=== PATIENT | male | born 1945 | race Two or more races ===

== ENCOUNTER 2016-04-12 21:55 | Inpatient (IN) | payer BC, OTHER ==
[~2016-04-12] VITALS: Ht 172.7 cm; Wt 116.4 kg
[2016-04-12] MEDS ORDERED: METOPROLOL TARTRATE 1MG/1ML-5ML VIAL IV ONE ×3 (22:10→22:45)
[2016-04-12] MEDS ORDERED: MECLIZINE HCL 25 MG TAB ONE (22:12)
[2016-04-12] MEDS ORDERED: MECLIZINE HCL 25 MG TAB PO ONE (22:15)
[2016-04-12] MEDS ORDERED: cloNIDine HCL 0.1 MG TAB ONE (22:26)
[2016-04-12] MEDS ORDERED: cloNIDine HCL 0.1 MG TAB PO ONE (22:45)
[2016-04-12] MEDS ORDERED: SODIUM CHLORIDE 0.9% 1,000 ML IV ONE (23:00)
[2016-04-12 23:07] LABS: Basophils # (auto) 0 uL; Basophils % (auto) 0.3 % (0.0-2.0); DEFINITIVE VIEW TRANSMISSION; Eosinophils # (auto) 0 uL; Eosinophils % (auto) 0.5 % (0.0-7.0); Hematocrit 40.3 % (41.0-53.0); Hemoglobin 12.8 g/dL (13.5-17.5); Lymphocytes # (auto) 1.5 uL; Lymphocytes % (auto) 18.8 % (10.0-50.0); Mean Corpuscular Hemoglobin 25.3 pg (28.0-32.0); Mean Corpuscular Hgb Conc. 31.7 g/dL (32.0-36.0); Mean Corpuscular Volume 79.8 fL (80.0-100.0); Mean Platelet Volume 8.7 fL (7.4-10.4); Monocytes # (auto) 0.5 uL; Monocytes % (auto) 5.8 % (0.0-12.0); Neutrophils # (auto) 6.1 uL; Neutrophils % (auto) 74.6 % (37.0-80.0); Platelet Count (auto) 194 10^3/uL (140-450); Red Cell Distribution Width 18.3 % (11.6-16.0); White Blood Cell 8.2 10^3/uL (4.4-10.8)
[2016-04-12 23:24] LABS: Partial Thromboplastin Time 24.8 sec (22.64-33.71)
[2016-04-12 23:25] LABS: INR 1.17 (0.9-1.15)
[2016-04-12 23:26] LABS: Albumin 3.4 g/dL (3.4-5.0); BUN/Creatinine Ratio 20.9; Calcium 7.8 mg/dL (8.5-10.1); Magnesium 2.1 mg/dL (1.6-2.6); Potassium 3.5 mmol/L (3.5-5.1)
[2016-04-12 23:29] LABS: Bilirubin, Total 0.5 mg/dL (0.2-1.0); Total Protein 7.1 g/dL (6.4-8.2)
[2016-04-12] MEDS ORDERED: FUROSEMIDE 20 MG/2 ML VIAL IV ONE (23:30)
[2016-04-12] MEDS ORDERED: ALBUTEROL SULF 2.5 MG/0.5ML(0.5%) NEB SOLN NEB ONE (23:30)
[2016-04-12] MEDS ORDERED: IPRATROPIUM BROM 0.5 MG/2.5ML INH SOL NEB ONE (23:30)
[2016-04-12] MEDS ORDERED: IOHEXOL 350 MG/ML 100ML IJ ONE (23:31)
[2016-04-12 23:39] LABS: B-Type Natriuretic Peptide 536.83 pg/mL (0-100); Temperature: 23.1 C (20.0-25.0)
[2016-04-13] VITALS (58 sets, daily range): BP systolic 97–150; BP diastolic 46–90
[2016-04-13] MEDS ORDERED: NITROGLYCERIN 50MG/250ML 250 ML IV ONE (00:20)
[2016-04-13] MEDS ORDERED: LORazepam 2MG/ML-1ML VIAL IV PRN (00:30)
[2016-04-13] MEDS ORDERED: NITROGLYCERIN 50MG/250ML 250 ML IV PRN ×2 (00:30→01:30)
[2016-04-13] MEDS ORDERED: MORPHINE SULF INJ 2 MG/ML SYRINGE 1ML IV PRN (00:30)
[2016-04-13] MEDS ORDERED: ACETAMINOPHEN 325 MG TAB PO PRN (00:30)
[2016-04-13] MEDS ORDERED: DEXTROSE (50%) 50ML SYRG IV PRN (00:30)
[2016-04-13] MEDS ORDERED: ONDANSETRON HCL 4 MG/2 ML VIAL IV PRN (00:30)
[2016-04-13 01:18] LABS: Urine Bilirubin Negative (Negative); Urine Blood Negative /uL (Negative); Urine Color Straw (Yellow); Urine Glucose Normal (Normal); Urine Ketone Negative (Negative); Urine Nitrite Negative (Negative); Urine RBC <1 /hpf (0 - 3); Urine Urobilinogen Normal (Negative); Urine pH 6.5 (5.0-8.0)
[2016-04-13] MEDS ORDERED: MORPHINE SULF INJ 2 MG/ML SYRINGE 1ML IV ONE (02:00)
[2016-04-13] MEDS: InsuLIN REG 1unit/0.01ml Soln (100units/ml) SC SCH ×3 (06:00→18:00)
[2016-04-13] MEDS: ACCU-CHEK COMFORT CURVE STRIP VI SCH ×3 (06:00→18:00)
[2016-04-13 07:55] LABS: Basophils # (auto) 0 uL; Basophils % (auto) 0.2 % (0.0-2.0); DEFINITIVE VIEW TRANSMISSION; Eosinophils # (auto) 0 uL; Eosinophils % (auto) 0.1 % (0.0-7.0); Hematocrit 39.8 % (41.0-53.0); Hemoglobin 12.5 g/dL (13.5-17.5); Lymphocytes # (auto) 0.9 uL; Lymphocytes % (auto) 9.6 % (10.0-50.0); Mean Corpuscular Hemoglobin 25.2 pg (28.0-32.0); Mean Corpuscular Hgb Conc. 31.5 g/dL (32.0-36.0); Mean Corpuscular Volume 79.8 fL (80.0-100.0); Mean Platelet Volume 8.6 fL (7.4-10.4); Monocytes # (auto) 0.5 uL; Monocytes % (auto) 5.3 % (0.0-12.0); Neutrophils # (auto) 7.5 uL; Neutrophils % (auto) 84.8 % (37.0-80.0); Platelet Count (auto) 196 10^3/uL (140-450); Red Cell Distribution Width 18.4 % (11.6-16.0); White Blood Cell 8.9 10^3/uL (4.4-10.8)
[2016-04-13 08:09] LABS: Albumin 3.6 g/dL (3.4-5.0); BUN/Creatinine Ratio 23.1; Bilirubin, Total 0.6 mg/dL (0.2-1.0); Calcium 8.9 mg/dL (8.5-10.1); Total Protein 7.1 g/dL (6.4-8.2)
[2016-04-13] MEDS ORDERED: PANTOPRAZOLE SODIUM 40 MG/10 ML VIAL IV ONE (09:00)
[2016-04-13 09:15] LABS: Cholesterol 143 mg/dL (<200); HDL Cholesterol 51 mg/dL (40-59); LDL Cholesterol 83 mg/dL (<100); Triglycerides 99 mg/dL (<150)
[2016-04-13] MEDS: METOPROLOL TARTRATE 25 MG TAB PO SCH ×2 (10:00→20:14)
[2016-04-13] MEDS: ASPirin 81 mg TAB PO SCH (10:00)
[2016-04-13] MEDS ORDERED: ASPirin 81 mg TAB PO ONE (10:00)
[2016-04-13] MEDS: POTASSIUM CHL 20 Meq TABLET PO SCH (10:00)
[2016-04-13] MEDS: FUROSEMIDE 20 MG/2 ML VIAL IV SCH (10:00)
[2016-04-13] MEDS ORDERED: LISINOPRIL 20 MG TAB ONE (12:49)
[2016-04-13] MEDS ORDERED: LABETALOL HCL 5 MG/ML 4ML SYRINGE IV PRN (13:15)
[2016-04-13] MEDS ORDERED: CLOPIDOGREL BISULFATE 75 MG TAB PO SCH (15:00)
[2016-04-13] MEDS: LISINOPRIL 20 MG TAB PO SCH (20:15)
[2016-04-13] MEDS: ATORVASTATIN 20 MG TAB PO SCH (20:16)
[2016-04-13] MEDS ORDERED: SODIUM CHLORIDE 0.9% 1,000 ML IV SCH (21:45)
[2016-04-13] MEDS ORDERED: CLOPIDOGREL BISULFATE 75 MG TAB ONE (21:49)
[2016-04-13] MEDS: CLOPIDOGREL BISULFATE 75 MG TAB PO SCH (21:55)
[2016-04-13] MEDS ORDERED: ATORVASTATIN 20 MG TAB PO SCH (22:00)
[2016-04-13] MEDS: SODIUM CHLORIDE 0.9% 1,000 ML IV SCH (22:05)
[2016-04-14] VITALS (27 sets, daily range): BP systolic 110–164; BP diastolic 55–87
[2016-04-14] MEDS: ACCU-CHEK COMFORT CURVE STRIP VI SCH ×5 (00:22→23:42)
[2016-04-14 07:27] LABS: Basophils # (auto) 0 uL; Basophils % (auto) 0.2 % (0.0-2.0); DEFINITIVE VIEW TRANSMISSION; Eosinophils # (auto) 0 uL; Eosinophils % (auto) 0.6 % (0.0-7.0); Hematocrit 38.5 % (41.0-53.0); Hemoglobin 12.1 g/dL (13.5-17.5); Lymphocytes # (auto) 1.4 uL; Lymphocytes % (auto) 17.1 % (10.0-50.0); Mean Corpuscular Hemoglobin 25.1 pg (28.0-32.0); Mean Corpuscular Hgb Conc. 31.5 g/dL (32.0-36.0); Mean Corpuscular Volume 79.6 fL (80.0-100.0); Mean Platelet Volume 8.4 fL (7.4-10.4); Neutrophils # (auto) 5.9 uL; Neutrophils % (auto) 70.1 % (37.0-80.0); Platelet Count (auto) 185 10^3/uL (140-450); Red Cell Distribution Width 18.4 % (11.6-16.0); White Blood Cell 8.4 10^3/uL (4.4-10.8)
[2016-04-14 07:44] LABS: Albumin 3.2 g/dL (3.4-5.0); Calcium 8.3 mg/dL (8.5-10.1); Potassium 4.3 mmol/L (3.5-5.1)
[2016-04-14 07:46] LABS: BUN/Creatinine Ratio 20.8
[2016-04-14] MEDS: SODIUM CHLORIDE 0.9% 1,000 ML IV SCH ×2 (08:00→20:43)
[2016-04-14 08:23] LABS: Bilirubin, Total 0.8 mg/dL (0.2-1.0); Total Protein 6.7 g/dL (6.4-8.2)
[2016-04-14] MEDS ORDERED: fentaNYL CITRATE 100 MCG/2 ML VL ONE (09:18)
[2016-04-14] MEDS ORDERED: MIDAZOLAM HCL 1MG/1ML-2 ML VIAL ONE (09:18)
[2016-04-14] MEDS ORDERED: SODIUM CHL 0.9% 50 ML ONE (09:18)
[2016-04-14] MEDS ORDERED: ANGIOMAX 250 MG VIAL IV ONE (09:18)
[2016-04-14] MEDS ORDERED: EPTIFIBATIDE INJ (2MG/ML) 10ML VIAL IV ONE (09:19)
[2016-04-14] MEDS ORDERED: HEPARIN DRIP/D5W 100UNITS/ML 250 ML IV ONE (10:25)
[2016-04-14] MEDS: FUROSEMIDE 20 MG/2 ML VIAL IV SCH (11:28)
[2016-04-14] MEDS: PANTOPRAZOLE SODIUM 40 MG/10 ML VIAL IV SCH (11:28)
[2016-04-14] MEDS: POTASSIUM CHL 20 Meq TABLET PO SCH (11:29)
[2016-04-14] MEDS: METOPROLOL TARTRATE 25 MG TAB PO SCH ×2 (11:29→21:29)
[2016-04-14] MEDS: LISINOPRIL 20 MG TAB PO SCH ×2 (11:29→21:30)
[2016-04-14] MEDS: ASPirin 81 mg TAB PO SCH (11:29)
[2016-04-14] MEDS ORDERED: HEPARIN DRIP/D5W 100UNITS/ML 250 ML IV SCH (11:41)
[2016-04-14] MEDS: InsuLIN REG 1unit/0.01ml Soln (100units/ml) SC SCH ×5 (12:00→23:42)
[2016-04-14] MEDS: HEPARIN DRIP/D5W 100UNITS/ML 250 ML IV SCH (12:00)
[2016-04-14 12:40] LABS: Partial Thromboplastin Time 28.6 sec (22.64-33.71)
[2016-04-14 12:43] LABS: INR 1.21 (0.9-1.15); Prothrombin Time 12.5 sec (9.37-12.3)
[2016-04-14] MEDS: amLODIPine BESYLATE 5 MG TAB PO PRN (17:25)
[2016-04-14] MEDS: ATORVASTATIN 20 MG TAB PO SCH (21:29)
[2016-04-15] VITALS (21 sets, daily range): BP systolic 117–166; BP diastolic 53–87
[2016-04-15] MEDS: SODIUM CHLORIDE 0.9% 1,000 ML IV SCH (04:00)
[2016-04-15] MEDS: InsuLIN REG 1unit/0.01ml Soln (100units/ml) SC SCH ×3 (06:00→18:00)
[2016-04-15] MEDS: ACCU-CHEK COMFORT CURVE STRIP VI SCH ×3 (06:00→17:48)
[2016-04-15 06:39] LABS: Partial Thromboplastin Time 31.3 sec (22.64-33.71); Prothrombin Time 12.1 sec (9.37-12.3)
[2016-04-15 06:43] LABS: INR 1.17 (0.9-1.15)
[2016-04-15 06:57] LABS: Calcium 8.4 mg/dL (8.5-10.1); Potassium 3.8 mmol/L (3.5-5.1)
[2016-04-15 06:58] LABS: BUN/Creatinine Ratio 18.1
[2016-04-15] MEDS: CLOPIDOGREL BISULFATE 75 MG TAB PO SCH (10:00)
[2016-04-15] MEDS: FUROSEMIDE 20 MG/2 ML VIAL IV SCH (10:40)
[2016-04-15] MEDS: LISINOPRIL 20 MG TAB PO SCH (10:41)
[2016-04-15] MEDS: ASPirin 81 mg TAB PO SCH (10:41)
[2016-04-15] MEDS: PANTOPRAZOLE SODIUM 40 MG/10 ML VIAL IV SCH (10:41)
[2016-04-15] MEDS: POTASSIUM CHL 20 Meq TABLET PO SCH (10:41)
[2016-04-15] MEDS: METOPROLOL TARTRATE 25 MG TAB PO SCH (10:42)
[2016-04-15] MEDS: HEPARIN DRIP/D5W 100UNITS/ML 250 ML IV SCH (11:55)
[2016-04-15] MEDS ORDERED: ROSU10TA16 PO (17:44)
[2016-04-15] MEDS ORDERED: FURO20TA PO (17:44)
[2016-04-15] MEDS ORDERED: BENZ1CAP24 PO (17:44)
[2016-04-15] MEDS ORDERED: METF-312 PO (17:44)
[2016-04-15] MEDS ORDERED: METO-158 PO (17:44)
[2016-04-15] MEDS ORDERED: POTA10TA34 PO (17:44)
[2016-04-15] MEDS ORDERED: IPRAAER6 IN (17:44)
[2016-04-15] MEDS ORDERED: METO50TA7 PO (17:44)
[2016-04-15] MEDS ORDERED: HEPARIN DRIP/D5W 100UNITS/ML 250 ML IV ONE (17:46)
[2016-04-15] MEDS ORDERED: HEPARIN DRIP/D5W 100UNITS/ML 250 ML IV SCH (17:55)
[2016-04-15] MEDS: amLODIPine BESYLATE 5 MG TAB PO PRN (18:02)
[2016-04-15] MEDS ORDERED: SODIUM CHLORIDE 0.9% 1,000 ML IV SCH (22:00)
[2016-04-16] MEDS ORDERED: HEPARIN DRIP/D5W 100UNITS/ML 250 ML IV SCH (11:55)
== END 2016-04-15 19:15 | disposition short-term general hospital (02) | DRG 286 ==
LOC: EDBD 21:55 → ER 22:05 → TELE 22:06 → EEVIPCON 22:06 → ICU WEST 04-13 02:37
PROVIDERS: ADMIT Internal Medicine; ATTEND Internal Medicine
PROC: 5A09457 Assistance with Respiratory Ventilation, 24-96 Consecutive Hours, Continuous Positive Airway Pressure (ICD-10-PCS; principal; 2016-04-13)
PROC: 4A023N7 Measurement of Cardiac Sampling and Pressure, Left Heart, Percutaneous Approach (ICD-10-PCS; 2016-04-14)
PROC: B2111ZZ Fluoroscopy of Multiple Coronary Arteries using Low Osmolar Contrast (ICD-10-PCS; 2016-04-14)
PROC: B2151ZZ Fluoroscopy of Left Heart using Low Osmolar Contrast (ICD-10-PCS; 2016-04-14)
PROC: B3151ZZ Fluoroscopy of Bilateral Common Carotid Arteries using Low Osmolar Contrast (ICD-10-PCS; 2016-04-14)
PROC: B31G1ZZ Fluoroscopy of Bilateral Vertebral Arteries using Low Osmolar Contrast (ICD-10-PCS; 2016-04-14)
DX: I16.1 Hypertensive emergency (principal); I50.21 Acute systolic (congestive) heart failure; I42.9 Cardiomyopathy, unspecified; G45.9 Transient cerebral ischemic attack, unspecified; I16.0 Hypertensive urgency; E66.01 Morbid (severe) obesity due to excess calories; E11.9 Type 2 diabetes mellitus without complications; Z96.643 Presence of artificial hip joint, bilateral; G47.33 Obstructive sleep apnea (adult) (pediatric); E78.5 Hyperlipidemia, unspecified; I25.10 Atherosclerotic heart disease of native coronary artery without angina pectoris; M48.02 Spinal stenosis, cervical region; I11.0 Hypertensive heart disease with heart failure; H81.09 Meniere's disease, unspecified ear; Z79.02 Long term (current) use of antithrombotics/antiplatelets; Z79.82 Long term (current) use of aspirin; Z88.1 Allergy status to other antibiotic agents; Z88.0 Allergy status to penicillin; Z68.39 Body mass index [BMI] 39.0-39.9, adult; I25.2 Old myocardial infarction; Z86.73 Personal history of transient ischemic attack (TIA), and cerebral infarction without residual deficits
CPT/HCPCS: 36222; 36226; 36415; 70450; 71010; 71260; 72125; 74177; 80048; 80053; 80061; 80156; 81001; 82565; 82947; 82962; 83036; 83735; 83880; 84484; 85025; 85049; 85379; 85610; 85730; 87081; 93005; 93306; 93458; 94660; 96374; 96375; 99152; C9113; J1815; J2250; J2405; J3490

== ENCOUNTER → 2016-09-09 | Outpatient (CLI) | payer BC ==
[~2016-09-09] MED LIST: BENZ1CAP24 PO; FURO20TA PO; IPRAAER6 IN; METF-370 PO; METO-158 PO; METO50TA7 PO; POTA10TA34 PO; ROSU10TA16 PO
[2016-09-09 10:11] LABS: Basophils # (auto) 0 uL; Basophils % (auto) 0.4 % (0.0-2.0); CONDITION Y; DEFINITIVE SEE PRINTOUT; Eosinophils # (auto) 0 uL; Eosinophils % (auto) 0.5 % (0.0-7.0); Hematocrit 38.8 % (41.0-53.0); Hemoglobin 12.6 g/dL (13.5-17.5); Lymphocytes # (auto) 1.8 uL; Lymphocytes % (auto) 22.5 % (10.0-50.0); Mean Corpuscular Hemoglobin 25.6 pg (28.0-32.0); Mean Corpuscular Hgb Conc. 32.3 g/dL (32.0-36.0); Mean Corpuscular Volume 79.1 fL (80.0-100.0); Mean Platelet Volume 9.5 fL (7.4-10.4); Monocytes # (auto) 0.7 uL; Monocytes % (auto) 9.2 % (0.0-12.0); Neutrophils # (auto) 5.5 uL; Neutrophils % (auto) 67.4 % (37.0-80.0); Platelet Count (auto) 225 10^3/uL (140-450); Red Cell Distribution Width 18.3 % (11.6-16.0); White Blood Cell 8.1 10^3/uL (4.4-10.8)
[2016-09-09 10:12] LABS: INR 2.14 (0.9-1.15); Prothrombin Time 23.5 sec (9.37-12.3)
[2016-09-09 10:36] LABS: Albumin 4.1 g/dL (3.4-5.0); Bilirubin, Total 0.5 mg/dL (0.2-1.0); Calcium 9.6 mg/dL (8.5-10.1); Potassium 4.8 mmol/L (3.5-5.1)
== END | disposition home or self-care (01) ==
LOC: LAB 09:45
PROVIDERS: ATTEND Internal Medicine Cardiovascular Disease
DX: I25.10 Atherosclerotic heart disease of native coronary artery without angina pectoris (principal); R79.89 Other specified abnormal findings of blood chemistry
CPT/HCPCS: 36415; 80053; 80061; 83036; 84439; 84480; 85025; 85610

== ENCOUNTER → 2017-02-04 | Outpatient (CLI) | payer BC ==
[2017-02-04 12:20] LABS: Basophils # (auto) 0 uL; Basophils % (auto) 0.5 % (0.0-2.0); Eosinophils # (auto) 0 uL; Eosinophils % (auto) 0.5 % (0.0-7.0); Hematocrit 37.8 % (41.0-53.0); Hemoglobin 12.4 g/dL (13.5-17.5); Lymphocytes # (auto) 1.6 uL; Lymphocytes % (auto) 24.3 % (10.0-50.0); Mean Corpuscular Hgb Conc. 32.8 g/dL (32.0-36.0); Mean Corpuscular Volume 82.5 fL (80.0-100.0); Mean Platelet Volume 8.4 fL (6.9-10.8); Monocytes # (auto) 0.6 uL; Monocytes % (auto) 8.9 % (0.0-12.0); Neutrophils # (auto) 4.4 uL; Neutrophils % (auto) 65.8 % (37.0-80.0); Platelet Count (auto) 161 10^3/uL (140-450); Red Cell Distribution Width 15.3 % (11.8-14.3); White Blood Cell 6.7 10^3/uL (4.4-10.8)
[2017-02-04 12:44] LABS: INR 1.7 (0.9-1.15); Partial Thromboplastin Time 29.6 sec (22.64-33.71); Prothrombin Time 18.6 sec (9.37-12.3)
[2017-02-04 13:21] LABS: BUN/Creatinine Ratio 26.4; Bilirubin, Total 0.5 mg/dL (0.2-1.0); Calcium 8.8 mg/dL (8.5-10.1); Potassium 3.9 mmol/L (3.5-5.1); Total Protein 7.9 g/dL (6.4-8.2)
== END | disposition home or self-care (01) ==
LOC: LAB 12:11
PROVIDERS: ATTEND Internal Medicine Cardiovascular Disease
DX: I10 Essential (primary) hypertension (principal); D64.9 Anemia, unspecified; E78.5 Hyperlipidemia, unspecified; E11.9 Type 2 diabetes mellitus without complications; Z86.73 Personal history of transient ischemic attack (TIA), and cerebral infarction without residual deficits; Z79.01 Long term (current) use of anticoagulants; Z95.1 Presence of aortocoronary bypass graft
CPT/HCPCS: 36415; 80053; 80061; 83036; 85025; 85610; 85730

== ENCOUNTER → 2017-05-16 | Outpatient (CLI) | payer BC ==
[2017-05-16 09:48] LABS: Basophils # (auto) 0 uL; Eosinophils # (auto) 0 uL; Eosinophils % (auto) 0.4 % (0.0-7.0); Hemoglobin 11.4 g/dL (13.5-17.5); Mean Corpuscular Hemoglobin 25.4 pg (28.0-32.0); Monocytes # (auto) 0.4 uL; Neutrophils # (auto) 3.4 uL; Red Cell Distribution Width 17.2 % (11.8-14.3)
[2017-05-16 09:50] LABS: Basophils % (auto) 0.4 % (0.0-2.0); Hematocrit 35.5 % (41.0-53.0); Lymphocytes # (auto) 1.2 uL; Lymphocytes % (auto) 23.8 % (10.0-50.0); Mean Corpuscular Hgb Conc. 32.2 g/dL (32.0-36.0); Mean Corpuscular Volume 78.8 fL (80.0-100.0); Monocytes % (auto) 7.4 % (0.0-12.0); Platelet Count (auto) 176 10^3/uL (140-450)
[2017-05-16 10:06] LABS: Albumin 3.7 g/dL (3.4-5.0); BUN/Creatinine Ratio 21.9; Bilirubin, Total 0.6 mg/dL (0.2-1.0); Calcium 9.1 mg/dL (8.5-10.1); Potassium 4.4 mmol/L (3.5-5.1); Total Protein 7.6 g/dL (6.4-8.2)
[2017-05-16 10:10] LABS: INR 1.73 (0.9-1.15); Partial Thromboplastin Time 29.8 sec (22.64-33.71)
== END | disposition home or self-care (01) ==
LOC: LAB 08:50
PROVIDERS: ATTEND Internal Medicine Cardiovascular Disease
DX: I10 Essential (primary) hypertension (principal); E11.9 Type 2 diabetes mellitus without complications; R79.89 Other specified abnormal findings of blood chemistry
CPT/HCPCS: 36415; 80053; 80061; 82947; 83036; 83880; 85025; 85610; 85730

== ENCOUNTER → 2017-08-06 | Outpatient (CLI) | payer BC ==
[2017-08-06 11:04] LABS: Basophils # (auto) 0 uL; Basophils % (auto) 0.4 % (0.0-2.0); Eosinophils # (auto) 0.1 uL; Hemoglobin 12.7 g/dL (13.5-17.5); Lymphocytes # (auto) 1.7 uL; Neutrophils # (auto) 4.3 uL
[2017-08-06 11:06] LABS: Hematocrit 38.8 % (41.0-53.0); Lymphocytes % (auto) 25.5 % (10.0-50.0); Mean Corpuscular Hemoglobin 26.1 pg (28.0-32.0); Mean Corpuscular Hgb Conc. 32.6 g/dL (32.0-36.0); Mean Corpuscular Volume 80.2 fL (80.0-100.0); Monocytes # (auto) 0.7 uL; Monocytes % (auto) 9.7 % (0.0-12.0); Neutrophils % (auto) 63.4 % (37.0-80.0); Platelet Count (auto) 162 10^3/uL (140-450); Red Blood Cells 4.84 10^6/uL (4.5-5.90); Red Cell Distribution Width 17.4 % (11.8-14.3); White Blood Cell 6.9 10^3/uL (4.4-10.8)
[2017-08-06 11:20] LABS: INR 1.06 (0.9-1.15); Partial Thromboplastin Time 26.1 sec (22.64-33.71); Prothrombin Time 11.6 sec (9.37-12.3)
[2017-08-06 11:26] LABS: Albumin 4.2 g/dL (3.4-5.0); BUN/Creatinine Ratio 29.8; Bilirubin, Total 0.5 mg/dL (0.2-1.0); Calcium 9.4 mg/dL (8.5-10.1); Potassium 4.7 mmol/L (3.5-5.1); Total Protein 8.2 g/dL (6.4-8.2)
== END | disposition home or self-care (01) ==
LOC: LAB 10:47
PROVIDERS: ATTEND Internal Medicine Cardiovascular Disease
DX: E11.65 Type 2 diabetes mellitus with hyperglycemia (principal); I25.729 Atherosclerosis of autologous artery coronary artery bypass graft(s) with unspecified angina pectoris; I11.0 Hypertensive heart disease with heart failure; I50.9 Heart failure, unspecified; E78.5 Hyperlipidemia, unspecified; I25.10 Atherosclerotic heart disease of native coronary artery without angina pectoris; Z79.01 Long term (current) use of anticoagulants; Z86.73 Personal history of transient ischemic attack (TIA), and cerebral infarction without residual deficits; Z95.1 Presence of aortocoronary bypass graft; Z79.82 Long term (current) use of aspirin; Z88.0 Allergy status to penicillin
CPT/HCPCS: 36415; 80053; 80061; 83036; 83880; 84153; 84403; 84443; 85025; 85610; 85730

== ENCOUNTER → 2017-10-23 | Outpatient (CLI) | payer BC ==
[~2017-10-23] MED LIST changes: +MET5XLT PO; -METO50TA7 PO; -POTA10TA34 PO; +POTA1TAB61 PO
[2017-10-23 11:57] LABS: Basophils # (auto) 0 uL; Basophils % (auto) 0.5 % (0.0-2.0); Eosinophils # (auto) 0.1 uL; Eosinophils % (auto) 0.7 % (0.0-7.0); Hematocrit 43.3 % (41.0-53.0); Hemoglobin 13.9 g/dL (13.5-17.5); Lymphocytes # (auto) 1.7 uL; Lymphocytes % (auto) 22.9 % (10.0-50.0); Mean Corpuscular Hemoglobin 26.2 pg (28.0-32.0); Mean Corpuscular Volume 81.7 fL (80.0-100.0); Monocytes # (auto) 0.6 uL; Monocytes % (auto) 7.8 % (0.0-12.0); Neutrophils % (auto) 68.1 % (37.0-80.0); Nucleated Red Blood Cells % 0.1 %; Red Cell Distribution Width 16.8 % (11.8-14.3); White Blood Cell 7.3 10^3/uL (4.4-10.8)
[2017-10-23 11:58] LABS: Platelet Count (auto) 134 10^3/uL (140-450)
[2017-10-23 12:33] LABS: INR 1.04 (0.9-1.15); Partial Thromboplastin Time 26.6 sec (23.78-33.04); Prothrombin Time 11.1 sec (9.27-12.13)
[2017-10-23 13:34] LABS: BUN/Creatinine Ratio 25.8; Calcium 8.8 mg/dL (8.5-10.1); Potassium 4.6 mmol/L (3.5-5.1)
== END | disposition home or self-care (01) ==
LOC: LAB 11:05
PROVIDERS: ATTEND Surgery
DX: I25.5 Ischemic cardiomyopathy (principal)
CPT/HCPCS: 36415; 80048; 80061; 85025; 85610; 85730

== ENCOUNTER → 2018-04-28 | Outpatient (CLI) | payer BC ==
[2018-04-28 09:27] LABS: Basophils # (auto) 0 uL; Basophils % (auto) 0.5 % (0.0-2.0); Eosinophils # (auto) 0.1 uL; Hematocrit 41.9 % (41.0-53.0); Hemoglobin 13.7 g/dL (13.5-17.5); Lymphocytes # (auto) 1.4 uL; Lymphocytes % (auto) 23.6 % (10.0-50.0); Mean Corpuscular Hemoglobin 27.2 pg (28.0-32.0); Mean Corpuscular Hgb Conc. 32.7 g/dL (32.0-36.0); Mean Corpuscular Volume 83.2 fL (80.0-100.0); Monocytes # (auto) 0.5 uL; Monocytes % (auto) 8.5 % (0.0-12.0); Neutrophils % (auto) 66.4 % (37.0-80.0); Platelet Count (auto) 150 10^3/uL (140-450); Red Blood Cells 5.03 10^6/uL (4.5-5.90); Red Cell Distribution Width 15.7 % (11.8-14.3)
[2018-04-28 09:39] LABS: INR 1.12 (0.9-1.15); Partial Thromboplastin Time 26.7 sec (23.78-33.04); Prothrombin Time 11.9 sec (9.27-12.13)
[2018-04-28 09:59] LABS: Alkaline Phosphatase 66 U/L (45-117); Bilirubin, Total 0.7 mg/dL (0.2-1.0); Cholesterol 125 mg/dL (< 200); GFR African American 101 mL/min; GFR Non-African American 83 mL/min; HDL Cholesterol 46 mg/dL (40-59); LDL Cholesterol 64 mg/dL (< 100); Total Protein 8.1 g/dL (6.4-8.2); Triglycerides 131 mg/dL (< 150)
[2018-04-28 10:01] LABS: Alanine Aminotransferase 21 U/L (16-61); Albumin 4.1 g/dL (3.4-5.0); Anion Gap 4 (5-15); Aspartate Aminotransferase 17 U/L (15-37); BUN/Creatinine Ratio 23.2; Blood Urea Nitrogen 22 mg/dL (7-18); Calcium 9.2 mg/dL (8.5-10.1); Carbon Dioxide 28 mmol/L (21-32); Chloride 109 mmol/L (98-107); Glucose 113 mg/dL (74-106); Potassium 4.6 mmol/L (3.5-5.1); Sodium 141 mmol/L (136-145)
== END | disposition home or self-care (01) ==
LOC: LAB 09:06
PROVIDERS: ATTEND Internal Medicine Cardiovascular Disease
DX: N40.0 Benign prostatic hyperplasia without lower urinary tract symptoms (principal); I25.10 Atherosclerotic heart disease of native coronary artery without angina pectoris; E11.65 Type 2 diabetes mellitus with hyperglycemia; I10 Essential (primary) hypertension
CPT/HCPCS: 36415; 80053; 82465; 83036; 83718; 83721; 83880; 84153; 84443; 84478; 85025; 85610; 85730

== ENCOUNTER → 2018-05-20 | Outpatient (CLI) | payer BC | END | disposition home or self-care (01) | LOC: LAB 08:04 | PROVIDERS: ATTEND Internal Medicine Cardiovascular Disease | DX: R79.89 Other specified abnormal findings of blood chemistry (principal) | CPT/HCPCS: 36415; 84403 ==

== ENCOUNTER → 2019-06-05 | Emergency (ER) | payer BC, SELFPAY ==
[~2019-06-05] VITALS: Ht 175.3 cm; Wt 90.7 kg
[~2019-06-05] MED LIST changes: +ACETAMINOPHEN 500 MG TAB PO ONE; +FURO1TAB33 PO; -FURO20TA PO; -MET5XLT PO; +METO-6 PO
[2019-06-05 20:20] VITALS: BP 105/79
== END | disposition home or self-care (01) ==
LOC: EEVIPCON 20:08 → ER 20:08
DX: B97.4 Respiratory syncytial virus as the cause of diseases classified elsewhere (principal); I11.0 Hypertensive heart disease with heart failure; I50.9 Heart failure, unspecified; E11.9 Type 2 diabetes mellitus without complications; Z86.73 Personal history of transient ischemic attack (TIA), and cerebral infarction without residual deficits; Z98.61 Coronary angioplasty status
CPT/HCPCS: 71046; 87804; 87807

== ENCOUNTER 2019-06-21 13:51 | Emergency (ER) | payer BC, SELFPAY ==
[~2019-06-21] VITALS: Ht 175.3 cm; Wt 90.7 kg
[~2019-06-21 13:51] MED LIST changes: -ACETAMINOPHEN 500 MG TAB PO ONE; -BENZ1CAP24 PO; +BENZ200C64 PO
[2019-06-21 14:03] VITALS: BP 118/65
== END 2019-06-21 14:07 | disposition home or self-care (01) ==
LOC: EEVIPCON 13:51 → ER 13:51
DX: F41.9 Anxiety disorder, unspecified (principal); R50.9 Fever, unspecified; R05 Cough; I11.0 Hypertensive heart disease with heart failure; I50.9 Heart failure, unspecified; E11.9 Type 2 diabetes mellitus without complications; Z86.73 Personal history of transient ischemic attack (TIA), and cerebral infarction without residual deficits; Z98.61 Coronary angioplasty status; Z88.1 Allergy status to other antibiotic agents; Z20.828 Contact with and (suspected) exposure to other viral communicable diseases
CPT/HCPCS: 87635; 99001

== ENCOUNTER → 2019-08-19 | Outpatient (CLI) | payer BC, MEDICARE ==
[~2019-08-19] MED LIST changes: +BENZ1CAP24 PO; -BENZ200C64 PO
[2019-08-19 09:29] LABS: Basophils # (auto) 0 10 ^3/uL (0-0.2); Basophils % (auto) 0.4 % (0.0-2.0); Eosinophils # (auto) 0 10 ^3/uL (0-0.8); Monocytes # (auto) 0.5 10 ^3/uL (0-1.3); Neutrophils # (auto) 3.8 10 ^3/uL (1.6-8.6)
[2019-08-19 09:30] LABS: Eosinophils % (auto) 0.5 % (0.0-7.0); Hematocrit 38.5 % (41.0-53.0); Hemoglobin 12.6 g/dL (13.5-17.5); Lymphocytes # (auto) 1.2 10 ^3/uL (0.4-5.4); Lymphocytes % (auto) 21.8 % (10.0-50.0); Mean Corpuscular Hgb Conc. 32.9 g/dL (32.0-36.0); Monocytes % (auto) 8.7 % (0.0-12.0); Neutrophils % (auto) 68.6 % (37.0-80.0); Platelet Count (auto) 135 10^3/uL (140-450); Red Blood Cells 4.69 10^6/uL (4.5-5.90); Red Cell Distribution Width 16.2 % (11.8-14.3); White Blood Cell 5.5 10^3/uL (4.4-10.8)
[2019-08-19 09:46] LABS: INR 1.18 (0.9-1.15); Partial Thromboplastin Time 27.8 sec (23.64-32.05)
[2019-08-19 09:47] LABS: Albumin 3.8 g/dL (3.4-5.0); Calcium 8.6 mg/dL (8.5-10.1); Potassium 4.8 mmol/L (3.5-5.1)
[2019-08-19 09:52] LABS: BUN/Creatinine Ratio 20.7; Bilirubin, Total 0.5 mg/dL (0.2-1.0); Total Protein 7.5 g/dL (6.4-8.2)
== END | disposition home or self-care (01) ==
LOC: LAB 09:17
PROVIDERS: ATTEND Surgery
DX: Z00.00 Encounter for general adult medical examination without abnormal findings (principal)
CPT/HCPCS: 36415; 80053; 80061; 83036; 84153; 85025; 85610; 85730

== ENCOUNTER → 2019-11-09 | Outpatient (CLI) | payer OTHER ==
[~2019-11-09] MED LIST changes: -BENZ1CAP24 PO; +BENZ200C64 PO
== END | disposition home or self-care (01) ==
LOC: LAB 11:55
PROVIDERS: ATTEND Physician Assistant
DX: Z20.828 Contact with and (suspected) exposure to other viral communicable diseases (principal)

== ENCOUNTER → 2020-03-09 | Outpatient (CLI) | payer BC | END | disposition home or self-care (01) | LOC: LAB 10:23 | PROVIDERS: ATTEND Nurse Practitioner Family | DX: U07.1 COVID-19 (principal) | CPT/HCPCS: 36415; 87426 ==

== ENCOUNTER → 2020-10-25 | Outpatient (CLI) | payer BC, MEDICARE ==
[2020-10-25 10:38] LABS: Basophils # (auto) 0 10 ^3/uL (0-0.2); Basophils % (auto) 0.5 % (0.0-2.0); Eosinophils # (auto) 0 10 ^3/uL (0-0.8); Eosinophils % (auto) 0.8 % (0.0-7.0); Hematocrit 37.9 % (41.0-53.0); Hemoglobin 12.8 g/dL (13.5-17.5); Lymphocytes # (auto) 1.2 10 ^3/uL (0.4-5.4); Mean Corpuscular Hemoglobin 27.4 pg (28.0-32.0); Mean Corpuscular Hgb Conc. 33.9 g/dL (32.0-36.0); Monocytes # (auto) 0.5 10 ^3/uL (0-1.3); Monocytes % (auto) 8.1 % (0.0-12.0); Neutrophils # (auto) 4.1 10 ^3/uL (1.6-8.6); Neutrophils % (auto) 69.6 % (37.0-80.0); Red Blood Cells 4.68 10^6/uL (4.5-5.90); Red Cell Distribution Width 16.6 % (11.8-14.3); White Blood Cell 5.8 10^3/uL (4.4-10.8)
[2020-10-25 11:03] LABS: Albumin 3.9 g/dL (3.4-5.0); INR 1.63 (0.9-1.15); Potassium 4.6 mmol/L (3.5-5.1)
[2020-10-25 11:09] LABS: BUN/Creatinine Ratio 22.7; Bilirubin, Total 0.5 mg/dL (0.2-1.0); CRP High Sensitivity 0.08 mg/dL (< 0.3)
== END | disposition home or self-care (01) ==
LOC: LAB 10:21
PROVIDERS: ATTEND Internal Medicine
DX: I11.0 Hypertensive heart disease with heart failure (principal); I50.42 Chronic combined systolic (congestive) and diastolic (congestive) heart failure; E11.65 Type 2 diabetes mellitus with hyperglycemia; N40.0 Benign prostatic hyperplasia without lower urinary tract symptoms
CPT/HCPCS: 36415; 80053; 80061; 83036; 84153; 84403; 84443; 85025; 85610; 85652; 85730; 86141

== ENCOUNTER → 2021-06-07 | Outpatient (CLI) | payer BC ==
[2021-06-07 08:04] LABS: Basophils # (auto) 0 10 ^3/uL (0-0.2); Basophils % (auto) 0.7 % (0.0-2.0); Eosinophils # (auto) 0 10 ^3/uL (0-0.8); Eosinophils % (auto) 0.8 % (0.0-7.0); Hematocrit 37.2 % (41.0-53.0); Hemoglobin 12.4 g/dL (13.5-17.5); Lymphocytes # (auto) 1.3 10 ^3/uL (0.4-5.4); Lymphocytes % (auto) 25.3 % (10.0-50.0); Mean Corpuscular Hgb Conc. 33.4 g/dL (32.0-36.0); Mean Corpuscular Volume 80.8 fL (80.0-100.0); Monocytes # (auto) 0.4 10 ^3/uL (0-1.3); Monocytes % (auto) 8.1 % (0.0-12.0); Neutrophils # (auto) 3.3 10 ^3/uL (1.6-8.6); Neutrophils % (auto) 65.1 % (37.0-80.0); Nucleated Red Blood Cells % 0.1 %; Red Cell Distribution Width 16.4 % (11.8-14.3)
[2021-06-07 08:41] LABS: Albumin 3.8 g/dL (3.4-5.0)
[2021-06-07 08:47] LABS: INR 1.99 (0.9-1.15)
[2021-06-07 08:48] LABS: BUN/Creatinine Ratio 19.4; Bilirubin, Direct 0.2 mg/dL (0-0.2); Bilirubin, Total 0.6 mg/dL (0.2-1.0); Total Protein 7.2 g/dL (6.4-8.2)
== END | disposition home or self-care (01) ==
LOC: LAB 07:51
PROVIDERS: ATTEND Nurse Practitioner
DX: E11.65 Type 2 diabetes mellitus with hyperglycemia (principal); I25.2 Old myocardial infarction; I10 Essential (primary) hypertension; I48.0 Paroxysmal atrial fibrillation
CPT/HCPCS: 36415; 80053; 80061; 80076; 83036; 84153; 84403; 85025; 85610; 85730

== ENCOUNTER → 2021-11-01 | Outpatient (CLI) | payer BC ==
[2021-11-01 08:35] LABS: Basophils # (auto) 0 10 ^3/uL (0-0.2); Eosinophils # (auto) 0 10 ^3/uL (0-0.8); Lymphocytes # (auto) 1.3 10 ^3/uL (0.4-5.4); Monocytes # (auto) 0.5 10 ^3/uL (0-1.3); Neutrophils % (auto) 66.4 % (37.0-80.0)
[2021-11-01 08:37] LABS: Basophils % (auto) 0.6 % (0.0-2.0); Eosinophils % (auto) 0.6 % (0.0-7.0); Hematocrit 40.3 % (41.0-53.0); Hemoglobin 12.7 g/dL (13.5-17.5); Mean Corpuscular Hemoglobin 25.5 pg (28.0-32.0); Mean Corpuscular Hgb Conc. 31.5 g/dL (32.0-36.0); Mean Corpuscular Volume 80.9 fL (80.0-100.0); Monocytes % (auto) 8.4 % (0.0-12.0); Neutrophils # (auto) 3.7 10 ^3/uL (1.6-8.6); Nucleated Red Blood Cells % 0.1 %; Red Blood Cells 4.98 10^6/uL (4.5-5.90); Red Cell Distribution Width 16.9 % (11.8-14.3); White Blood Cell 5.5 10^3/uL (4.4-10.8)
[2021-11-01 08:46] LABS: Calcium 8.6 mg/dL (8.5-10.1); Potassium 4.4 mmol/L (3.5-5.1)
[2021-11-01 08:51] LABS: BUN/Creatinine Ratio 21.1; Bilirubin, Total 0.7 mg/dL (0.2-1.0); INR 1.69 (0.9-1.15); Partial Thromboplastin Time 32.5 sec (24.6-33.4); Total Protein 7.4 g/dL (6.4-8.2)
== END | disposition home or self-care (01) ==
LOC: LAB 08:20
PROVIDERS: ATTEND Internal Medicine
DX: A88.1 Epidemic vertigo (principal)
CPT/HCPCS: 36415; 80053; 80061; 82947; 83036; 84403; 84443; 85025; 85610; 85730

== ENCOUNTER → 2024-03-18 | Outpatient (CLI) | payer BC, MEDICARE ==
[~2024-03-18] MED LIST changes: +POTA-215 PO; -POTA1TAB61 PO
[2024-03-18 13:13] LABS: Basophils # (auto) 0 10 ^3/uL (0-0.2); Basophils % (auto) 0.3 % (0.0-2.0); Eosinophils # (auto) 0 10 ^3/uL (0-0.8); Eosinophils % (auto) 0.7 % (0.0-7.0); Hematocrit 42.6 % (41.0-53.0); Lymphocytes # (auto) 1.5 10 ^3/uL (0.4-5.4); Lymphocytes % (auto) 21.9 % (10.0-50.0); Mean Corpuscular Hemoglobin 27.1 pg (28.0-32.0); Mean Corpuscular Hgb Conc. 32.8 g/dL (32.0-36.0); Mean Corpuscular Volume 82.6 fL (80.0-100.0); Monocytes # (auto) 0.5 10 ^3/uL (0-1.3); Monocytes % (auto) 7.3 % (0.0-12.0); Neutrophils # (auto) 4.8 10 ^3/uL (1.6-8.6); Neutrophils % (auto) 69.8 % (37.0-80.0); Nucleated Red Blood Cells % 0.1 %; Platelet Count (auto) 159 10^3/uL (140-450); Red Blood Cells 5.16 10^6/uL (4.5-5.90); Red Cell Distribution Width 15.9 % (11.8-14.3); White Blood Cell 6.9 10^3/uL (4.4-10.8)
[2024-03-18 13:40] LABS: Alanine Aminotransferase 22 U/L (7-40); Alkaline Phosphatase 52 U/L (46-116); Anion Gap 7 (5-15); Aspartate Aminotransferase 18 U/L (13-40); BUN/Creatinine Ratio 13.7 (10.0-20.0); Blood Urea Nitrogen 20 mg/dL (9-23); Calcium 10.2 mg/dL (8.7-10.4); Carbon Dioxide 27 mmol/L (20-31); Chloride 106 mmol/L (98-107); LDL Cholesterol 57 mg/dL (< 100); Potassium 4.9 mmol/L (3.5-5.1); Sodium 140 mmol/L (136-145)
[2024-03-18 13:41] LABS: Bilirubin, Total 0.7 mg/dL (0.2-1.0); Cholesterol 137 mg/dL (< 200); HDL Cholesterol 41 mg/dL (40-59); Total Protein 7.7 g/dL (5.7-8.2)
[2024-03-18 13:44] LABS: Albumin 4.8 g/dL (3.2-4.8); Glucose 109 mg/dL (74-106); Triglycerides 248 mg/dL (< 150)
== END | disposition home or self-care (01) ==
LOC: LAB 12:54
PROVIDERS: ATTEND Nurse Practitioner
DX: Z00.00 Encounter for general adult medical examination without abnormal findings (principal); Z79.899 Other long term (current) drug therapy
CPT/HCPCS: 36415; 80053; 80061; 83036; 84153; 85025

== ENCOUNTER → 2024-05-03 | Outpatient (CLI) | payer BC, MEDICARE ==
[~2024-05-03] VITALS: Ht 177.8 cm; Wt 99.8 kg
[2024-05-03] MEDS: REGADENOSON 0.4 MG/5 ML SYRG IV ONE ×2 (10:26→10:34)
--- NOTE | 2024-05-03 14:51 | DVHSR ---
APPROVED REPORT Exam: Nuclear Stress Test Indication: CAD Stress Tech: Christy Purcell Ht: 5 ft 10 in Wt: 220 lbs BSA: 2.17 m2 BMI: 31.56 Medical History Medical History: CAD s/p CABG, CHF, HTN, Diabetes, PAF, HYPERTRIGLYCERIDES, SECONDARY HYPERCOAGULABLE STATE Allergies: CEPHALOSPORINS, PCN Stress Test Details Stress Test: Pharmacologic stress testing performed using 0.4 mg of regadenoson per 5 mL given IV ov er 10 seconds. Reason for pharmacologic stress test: CAD. HR Resting HR: 60 bpmMax Heart Rate (APMHR): 143.507024 bpm Max HR Achieved: 89 bpmTarget HR (85% APMHR): 121.770574 bpm % of APMHR: 62.24 Recovery HR: 75 bpm BP Resting BP: 147/69 mmHg Recovery BP: 149/67 mmHg ECG Resting ECG: NSR W/ BBB Clinical Reason for Termination: Completed protocol Nurse Comments Received patient from Nuclear Medicine. Patient is A&O x4 and on RA. FOR VS please refer back to st ress test assessment documentation. Patient is connected to manager floor. See cardio-neuro proce dural notes for addtional details. PIV flushes well. Reviewed POC and patient verbalizes understand ing and consents to test. Lexiscan stress test performed per protocol. firestopper technician administered the Cardiolite. Pat ient tolerated well and vitals returned to baseline. Transferred to Nuclear Medicine via wheelchair with tech in stable condition. 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 Time of rest injection: 0915 Time of rest imagin Administration Route: IV Administration Site: Left AC Pharmacologic Stress Pharmacologic stress test was performed by injecting Regadenoson 0.4 mg IV push followed by the intra venous injection of 30.5 mCi of Tc-99m Sestamibi. Time of stress injection: 1027 Time of stress imagin Administration Route: IV Administration Site: Left AC Gated Stress SPECT was performed 60 minutes after stress injection. The images were gated to evaluate regional wall motion and calculate left ventricular ejection fracti on. Stress only was performed in the Supine position. 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
== END | disposition home or self-care (01) ==
LOC: XY 08:58
PROVIDERS: ATTEND Internal Medicine
DX: I25.10 Atherosclerotic heart disease of native coronary artery without angina pectoris (principal)
CPT/HCPCS: 78452; 93017; A9500; J2785

== ENCOUNTER → 2024-05-27 | Outpatient (CLI) | payer BC, MEDICARE ==
[2024-05-27 12:51] LABS: INR 1.36 (0.9-1.15)
[2024-05-27 12:54] LABS: Alanine Aminotransferase 22 U/L (7-40); Alkaline Phosphatase 52 U/L (46-116); Anion Gap 5 (5-15); Calcium 9.9 mg/dL (8.7-10.4); Carbon Dioxide 25 mmol/L (20-31); Glucose 97 mg/dL (74-106); LDL Cholesterol 69 mg/dL (< 100); Sodium 143 mmol/L (136-145); Total Protein 7.1 g/dL (5.7-8.2)
[2024-05-27 12:55] LABS: Albumin 4.6 g/dL (3.2-4.8); Aspartate Aminotransferase 16 U/L (13-40); Bilirubin, Total 0.6 mg/dL (0.2-1.0); Blood Urea Nitrogen 11 mg/dL (9-23); Cholesterol 148 mg/dL (< 200); HDL Cholesterol 42 mg/dL (40-59)
[2024-05-27 12:56] LABS: Chloride 113 mmol/L (98-107); Potassium 5.2 mmol/L (3.5-5.1); Triglycerides 204 mg/dL (< 150)
== END | disposition home or self-care (01) ==
LOC: LAB 12:13
PROVIDERS: ATTEND Nurse Practitioner
DX: Z00.00 Encounter for general adult medical examination without abnormal findings (principal)
CPT/HCPCS: 36415; 80053; 80061; 83036; 85610

== ENCOUNTER → 2025-02-24 | Outpatient (CLI) | payer BC, MEDICARE ==
[2025-02-24 08:47] LABS: Hematocrit 47.6 % (41.0-53.0); Hemoglobin 15.3 g/dL (13.5-17.5); Mean Corpuscular Hemoglobin 27.1 pg (28.0-32.0); Mean Corpuscular Volume 84.1 fL (80.0-100.0); Nucleated Red Blood Cells % 0.1 %
[2025-02-24 09:05] LABS: INR 1.06 (0.9-1.15); Partial Thromboplastin Time 26.7 SEC (24.5-34.5); Prothrombin Time 11.2 sec (9.3-11.8)
[2025-02-24 09:20] LABS: Alanine Aminotransferase 16 U/L (7-40); Alkaline Phosphatase 56 U/L (46-116); Calcium 9.6 mg/dL (8.7-10.4); Carbon Dioxide 26 mmol/L (20-31); Chloride 105 mmol/L (98-107); Glucose 103 mg/dL (74-106); Potassium 4.2 mmol/L (3.5-5.1); Sodium 140 mmol/L (136-145)
[2025-02-24 09:21] LABS: Albumin 4.7 g/dL (3.2-4.8); Anion Gap 9 (5-15); BUN/Creatinine Ratio 14.0 (10.0-20.0); Bilirubin, Direct 0.2 mg/dL (<0.3); Bilirubin, Total 0.7 mg/dL (0.2-1.0); Blood Urea Nitrogen 18 mg/dL (9-23); Cholesterol 178 mg/dL (< 200); HDL Cholesterol 44 mg/dL (40-59); Total Protein 7.6 g/dL (5.7-8.2)
[2025-02-24 09:22] LABS: Triglycerides 298 mg/dL (< 150)
[2025-02-25 08:07] LABS: Prostate Specific Antigen 5.2 ng/mL (0.0-4.0)
== END | disposition home or self-care (01) ==
LOC: LAB 08:14
PROVIDERS: ATTEND Nurse Practitioner
DX: E29.1 Testicular hypofunction (principal); E10.65 Type 1 diabetes mellitus with hyperglycemia
CPT/HCPCS: 36415; 80053; 80061; 80076; 82306; 83036; 84153; 84154; 84403; 84443; 85025; 85610; 85730